=== PATIENT | male | born 1980 | race Caucasian/White ===

== ENCOUNTER → 2017-06-08 | Outpatient (CLI) | payer BC ==
[2017-06-08 07:58] LABS: HEMATOCRIT 45.4 % (37.9-51.0); HEMOGLOBIN 14.5 g/dL (13.5-17.0); MEAN CORPUSCULAR HEMOGLOBIN 19.5 pg (27.0-33.4); PLATELET COUNT 198 10^3/uL (150-450); RED CELL DISTRIBUTION WIDTH 15.6 % (11.5-14.0); WHITE BLOOD COUNT 9.4 10^3/uL (4.0-10.5)
--- NOTE | 2017-06-08 08:06 | RADIOLOGY REPORT (SQ) ---
EXAM DESCRIPTION: CHEST PA/LATERAL COMPLETED DATE/TIME: 06/08/2017 7:43 am REASON FOR STUDY: SOB COMPARISON: None. EXAM PARAMETERS: NUMBER OF VIEWS: two views TECHNIQUE: Digital Frontal and Lateral radiographic views of the chest acquired. RADIATION DOSE: NA LIMITATIONS: none FINDINGS: LUNGS AND PLEURA: No infiltrates or effusions. Calcified granuloma right upper lobe. Chr onic pleural thickening left posterior costophrenic angle. Linear scarring lingula. MEDIASTINUM AND HILAR STRUCTURES: No masses or contour abnormalities. HEART AND VASCULAR STRUCTURES: Heart normal size. The pulmonary vasculature is normal. BONES: No acute findings. HARDWARE: None in the chest. OTHER: No other significant finding. 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 OLD GRANULOMATOUS DISEASE. TECHNICAL DOCUMENTATION: JOB ID: [id number] [employer]- All Rights Reserved
[2017-06-08 08:17] LABS: ALANINE AMINOTRANSFERASE 39 U/L (21-72); ALBUMIN 4.5 g/dL (3.5-5.0); ALKALINE PHOSPHATASE 43 U/L (38-126); ANION GAP 11 (5-19); ASPARTATE AMINO TRANSFERASE 23 U/L (17-59); BILIRUBIN,DIRECT 0.4 mg/dL (0.0-0.4); BILIRUBIN,TOTAL 1.3 mg/dL (0.2-1.3); BLOOD UREA NITROGEN 10 mg/dL (7-20); CALCIUM 9.7 mg/dL (8.4-10.2); CARBON DIOXIDE 26 mmol/L (22-30); CHLORIDE 102 mmol/L (98-107); CHOLESTEROL 134.39 mg/dL (0-200); GLUCOSE 94 mg/dL (75-110); POTASSIUM 4.3 mmol/L (3.6-5.0); SODIUM 139.1 mmol/L (137-145); TOTAL PROTEIN 7.3 g/dL (6.3-8.2); TRIGLYCERIDES 138 mg/dL (<150)
[2017-06-08 08:22] LABS: MEAN CORPUSCULAR VOLUME 61 fl (80-97); RED BLOOD COUNT 7.44 10^6/uL (4.35-5.55)
[2017-06-08 08:28] LABS: DIRECT LDL 84 mg/dL (<100)
[2017-06-08 08:31] LABS: ABSOLUTE LYMPHOCYTES# (MANUAL) 3.2 10^3/uL (0.5-4.7); ABSOLUTE MONOCYTES # (MANUAL) 0.8 10^3/uL (0.1-1.4); ABSOLUTE NEUTROPHILS# (MANUAL) 4.4 10^3/uL (1.7-8.2); BASOPHILS % (MANUAL) 1 % (0-2); EOSINOPHILS % (MANUAL) 9 % (0-6); LYMPHOCYTES % (MANUAL) 19 % (13-45); MONOCYTES % (MANUAL) 9 % (3-13); POLYCHROMASIA SLIGHT; SEGMENTED NEUTROPHILS % (MAN) 47 % (42-78); TOTAL CELLS COUNTED 100
[2017-06-08 08:32] LABS: ANISOCYTOSIS SLIGHT; HYPOCHROMASIA SLIGHT; PLATELET COMMENT ADEQUATE; PLATELET GIANT PRESENT; PLATELET LARGE PRESENT
[2017-06-09 10:49] LABS: PATH REVIEW PATHOLOGIST REVIEWED
== END ==
LOC: OD 07:09
PROVIDERS: ATTEND Physician Assistant
DX: R06.02 Shortness of breath (principal); E29.1 Testicular hypofunction; R03.0 Elevated blood-pressure reading, without diagnosis of hypertension; Z13.220 Encounter for screening for lipoid disorders; Z09 Encounter for follow-up examination after completed treatment for conditions other than malignant neoplasm
CPT/HCPCS: 36415; 71046; 80053; 80061; 84403; 84443; 85025

== ENCOUNTER → 2017-06-18 | Outpatient (CLI) | payer BC ==
[2017-06-19 06:39] LABS: LUTEINIZING HORMONE <0.2 mIU/mL (1.7-8.6)
[2017-06-19 08:31] LABS: FOLLICLE STIMULATING HORMONE 0.2 mIU/mL (1.5-12.4)
[2017-06-20 18:07] LABS: TESTOSTERONE FREE (DIRECT) 7.8 pg/mL (8.7-25.1)
== END ==
LOC: OD 07:33
PROVIDERS: ATTEND Physician Assistant
DX: E29.1 Testicular hypofunction (principal)
CPT/HCPCS: 36415; 83001; 83002; 84402; 84403